=== PATIENT | female | born 1985 | race African-American/Black ===

== ENCOUNTER 2016-06-28 20:58 | Emergency (ER) | payer OTHER ==
[2016-06-28] MEDS ORDERED: Gentamicin Ophth Ointment 0.3% 3.5 gm Tube ONE (21:24)
[2016-06-28 21:33] LABS: #Basophils 0.1 thou/uL (0.0-0.2); #Eosinphils 0.1 thou/uL (0.0-0.7); #Lymphocytes 2.1 thou/uL (1.20-3.40); #Monocytes 0.5 thou/uL (0.11-0.59); #Neutrophils 2.8 thou/uL (1.40-6.50); %Basophils 1.1 % (0.0-1.0); %Eosinophils 1.2 % (0.0-10.0); %Lymphocytes 38.6 % (21.0-51.0); %Monocytes 8.8 % (0.0-10.0); %Neutrophils 50.3 % (42.0-75.0); Hemoglobin 11.8 g/dL (12.0-16.0); Mean Corpuscular HGB CONC 31.6 g/dL (32.0-36.0); Mean Corpuscular Hemoglobin 26.8 pg (27.0-31.0); Mean Corpuscular Volume 84.6 fl (81.0-99.0); Mean Platelet Volume 9.9 fL (7.4-10.4); Platelet Count 240 thou/uL (130-400); RBC Distribution Width 13.2 % (11.5-14.5); Red Blood Cell (RBC) Count 4.41 mill/uL (4.20-5.40); White Blood Cell (WBC) Count 5.5 thou/uL (4.8-10.8)
[2016-06-28 21:37] LABS: Bilirubin Negative (Negative); Blood, Urine Trace (Negative); Clarity Clear (Clear); Glucose, Urine (Dipstick) Negative (Negative); Leukocyte Negative (Negative); Nitrite Negative (Negative); Protein, Urine (Dipstick) Negative (Neg-Trace); Specific Gravity, Urine 1.025 (1.005-1.030); Urobilinogen 0.2 mg/dL (0.2-1.0)
[2016-06-28 21:56] LABS: Pregnancy Test - Urine (BHCG) NEGATIVE (NEGATIVE); Pregu Control Bar Appear? YES (CONTROL BAR); Specific Gravity 1.025 (1.002-1.036)
[2016-06-28 21:57] LABS: Bacteria/HPF 1+ HPF (None Seen); RBC/HPF 0-3 HPF (0-3); WBC/HPF 0-3 HPF (0-3)
== END 2016-06-28 22:26 | disposition home or self-care (01) ==
LOC: NAV ERS 20:58
DX: H10.9 Unspecified conjunctivitis (principal); R10.30 Lower abdominal pain, unspecified
CPT/HCPCS: 81003; 81015; 81025; 85025; 99284

== ENCOUNTER 2016-12-06 23:10 | Emergency (ER) | payer OTHER, SELFPAY ==
[2016-12-06] MEDS ORDERED: Metoclopramide HCl 10 MG/2 ML VIAL ONE (23:44)
[2016-12-06] MEDS ORDERED: diphenhydrAMINE 50 MG/ML VIAL ONE (23:44)
[2016-12-06] MEDS ORDERED: Sodium Chloride 0.9% 100 ML ONE (23:44)
[2016-12-06] MEDS ORDERED: Sodium Chloride 0.9% 1,000 ML ONE (23:44)
[2016-12-06 23:53] LABS: #Basophils 0.1 thou/uL (0.0-0.2); #Eosinphils 0.1 thou/uL (0.0-0.7); #Lymphocytes 2.7 thou/uL (1.20-3.40); #Monocytes 0.4 thou/uL (0.11-0.59); #Neutrophils 3.1 thou/uL (1.40-6.50); %Basophils 1.1 % (0.0-1.0); %Eosinophils 1.3 % (0.0-10.0); %Lymphocytes 42.8 % (21.0-51.0); %Monocytes 6.4 % (0.0-10.0); %Neutrophils 48.4 % (42.0-75.0); Mean Corpuscular Hemoglobin 28.4 pg (27.0-31.0); Mean Corpuscular Volume 88.8 fl (81.0-99.0); Mean Platelet Volume 9.7 fL (7.4-10.4); Platelet Count 262 thou/uL (130-400); RBC Distribution Width 12.9 % (11.5-14.5); Red Blood Cell (RBC) Count 4.23 mill/uL (4.20-5.40); White Blood Cell (WBC) Count 6.4 thou/uL (4.8-10.8)
--- NOTE | 2016-12-06 23:59 | RAD ---
AP VIEW CHEST 12/06/16 HISTORY: Intermittent chest pain. AP view chest is obtained. The lungs are well aerated. No evidence of active intrathoracic disease s een. No evidence of effusions, pneumonia or pneumothorax seen. IMPRESSION: Unremarkable AP view chest. POS: [id number]
[2016-12-07 00:15] LABS: CKMB 0.5 ng/mL (0-6.6); Troponin I Less than 0.010 ng/mL (< 0.028)
[2016-12-07 00:16] LABS: ALT (SGPT) 13 U/L (8-55); AST (SGOT) 18 U/L (5-34); Albumin 4.2 g/dL (3.5-5.0); Alkaline Phosphatase 89 U/L (40-150); Anion Gap 13 mmol/L (10-20); BUN (Urea Nitrogen) 13 mg/dL (7.0-18.7); Bilirubin, Total 0.3 mg/dL (0.2-1.2); CK (CPK) 107 U/L (29-168); Calc. Creatinine Clearance 0 mL/min (70-130); Calcium 9.4 mg/dL (7.8-10.44); Carbon Dioxide 22 mmol/L (22-29); Chloride 112 mmol/L (98-107); Estimated GFR-MDRD Greater than 90; Globulin 3.6 g/dL (2.4-3.5); Glucose 135 mg/dL (70-105); Lipase 34 U/L (8-78); Potassium 3.8 mmol/L (3.5-5.1); Protein, Total 7.8 g/dL (6.0-8.3); Sodium 143 mmol/L (136-145)
== END 2016-12-07 01:15 | disposition home or self-care (01) ==
LOC: NAV ERS 23:10
DX: G43.909 Migraine, unspecified, not intractable, without status migrainosus (principal); R07.9 Chest pain, unspecified; Z86.718 Personal history of other venous thrombosis and embolism
CPT/HCPCS: 36415; 71010; 80053; 82553; 83690; 84484; 85025; 85379; 93005; 96361; 96374; 96375; J1200; J2765; J7050